=== PATIENT | male | born 1990 | race Caucasian/White ===

== ENCOUNTER 2020-04-01 22:16 | Inpatient (IN) | payer OTHER, SELFPAY ==
[2020-04-01] MEDS ORDERED: Ondansetron PF 4 MG/2 ML Vial ONE (22:35)
[2020-04-01] MEDS ORDERED: Morphine 4 MG/ML VIAL ONE (22:35)
[2020-04-02] MEDS ORDERED: Morphine 4 MG/ML VIAL SLOW IVP PRN (01:08)
[2020-04-02] MEDS ORDERED: Ondansetron PF 4 MG/2 ML Vial IVP PRN (01:15)
[2020-04-02] MEDS ORDERED: Ondansetron ODT 4 MG TAB SL PRN (01:15)
[2020-04-02] MEDS ORDERED: Sodium Chloride 0.9% 1,000 ML IV SCH (01:15)
[2020-04-02 01:43] VITALS: BMI 21.2
[2020-04-02] MEDS: Piperacillin/Tazobactam 3.375 GM in Sodium Chloride 0.9% 100 ML IVPB SCH ×4 (03:43→23:23)
--- NOTE | 2020-04-02 07:29 | HP ---
CHIEF COMPLAINT: Right lower quadrant abdominal pain. HISTORY OF PRESENT ILLNESS: This is a 29-year-old male with a 4-day history of abdominal pain, now right lower quadrant, associated with nausea, vomiting, anorexia, subjective fever. Last meal was yesterday at 11:00 a.m. PAST MEDICAL HISTORY: Otherwise healthy. PAST SURGICAL HISTORY: Tonsils and adenoidectomy. No medications. ALLERGIES: NO KNOWN DRUG ALLERGIES. SOCIAL HISTORY: . No tobacco and no alcohol. FAMILY HISTORY: Prostate cancer and diabetes. PHYSICAL EXAMINATION: VITAL SIGNS: Temperature 97.8, pulse 76, blood pressure 92/57. GENERAL: He is awake, alert, and lying still. HEENT: Unremarkable. LUNGS: Clear. HEART: Regular rate and rhythm. ABDOMEN: Nondistended. Percussion, tender in right lower quadrant. Positive Rovsing. No palpable mass. LABORATORY DATA: CT scan shows appendicitis. His white count is 10,000. H and H of 14 and 41, platelet count 259. Electrolytes are fine. ASSESSMENT: Acute appendicitis. PLAN: Laparoscopic appendectomy. CONSENT: I have discussed planned procedure as well as risk of bleeding, infection, injury to bowel and bladder, need to open. He understands, gives informed consent. Job ID: [id number]
[2020-04-02] MEDS: Sodium Chloride 0.9% 1,000 ML IV SCH ×3 (07:34→19:59)
[2020-04-02] MEDS ORDERED: cefOXitin Sodium/Dextrose 2 GM/50 ML BAG ONE (08:02)
[2020-04-02] MEDS ORDERED: Bupivacaine 0.25% HCL 30 ML VIAL ONE (08:07)
[2020-04-02] MEDS ORDERED: Lidocaine 1% w/Epinephrine 1:100K 20 ML VIAL ONE (08:07)
[2020-04-02] MEDS ORDERED: Fentanyl 100 MCG/2 ML VIAL ONE ×2 (08:15→09:56)
[2020-04-02] MEDS ORDERED: Lidocaine 2% Jelly 5 ML TUBE ONE (08:16)
[2020-04-02] MEDS ORDERED: Ondansetron PF 4 MG/2 ML Vial ONE (08:28)
[2020-04-02] MEDS ORDERED: Succinylcholine Chloride 20 MG/ML 10 ml SYRINGE FS ONE (08:28)
[2020-04-02] MEDS ORDERED: PROPOFOL 200 MG/20 ML VIAL ONE (08:28)
[2020-04-02] MEDS ORDERED: Ketorolac Tromethamine 30 MG/ML VIAL ONE (08:28)
[2020-04-02] MEDS ORDERED: Dexamethasone 20 MG/5 ML VIAL ONE (08:28)
[2020-04-02] MEDS ORDERED: Rocuronium Bromide 10 MG/ML (10ML VIAL) ONE (08:28)
[2020-04-02] MEDS ORDERED: Glycopyrrolate 0.2 MG/ML 5 ML SYRINGE ONE (08:28)
[2020-04-02] MEDS ORDERED: Lidocaine 1% PF 5 ML VIAL ONE (08:28)
[2020-04-02] MEDS ORDERED: SUGAMMADEX SODIUM 200 MG/2 ML VIAL ONE (09:37)
[2020-04-02] MEDS ORDERED: traMADol HCl 50 MG TAB PO PRN (09:44)
[2020-04-02] MEDS ORDERED: Promethazine HCl 25 MG/ML VIAL IM PRN (09:51)
[2020-04-02] MEDS ORDERED: Ondansetron HCl/PF 4 MG/2 ML Vial IVP PRN (09:51)
[2020-04-02] MEDS ORDERED: Promethazine HCl 25 MG/ML VIAL SLOW IVP PRN (09:51)
[2020-04-02] MEDS ORDERED: Meperidine HCl/PF 25 MG/ML VIAL ONE (09:56)
[2020-04-02] MEDS: Ketorolac Tromethamine 30 MG/ML VIAL IVP SCH ×3 (11:16→23:23)
[2020-04-02] MEDS: Acetaminophen 500 MG TAB PO SCH ×3 (11:17→23:23)
--- NOTE | 2020-04-02 11:43 | OP ---
DATE OF PROCEDURE: 04/02/2020 PREOPERATIVE DIAGNOSIS: Acute appendicitis. POSTOPERATIVE DIAGNOSIS: Acute suppurative retrocecal appendicitis with perforation. PROCEDURE PERFORMED: Laparoscopic appendectomy. ANESTHESIA: General endotracheal. ESTIMATED BLOOD LOSS: 10 mL. FLUIDS GIVEN: 600 mL of crystalloids. COUNTS: Sponge and instrument counts were verified as correct x2. COMPLICATIONS: None apparent at the time of operation. INDICATIONS FOR OPERATION: This is a 29-year-old man presented with a 4-day history of right lower quadrant abdominal pain. Clinical and radiographic examination were consistent with acute appendicitis, for which the patient was brought to the operating room today for appendectomy. Findings are consistent with suppurative retrocecal appendix with perforation. Minimum purulent abscess evacuated there. DESCRIPTION OF PROCEDURE: Informed consent was obtained from the patient who was brought to the operating room and placed in supine position. Following general anesthesia, abdomen was sterilely prepped and draped in usual fashion. Skin below the umbilicus was infiltrated with 0.25% Marcaine with epinephrine. A small curvilinear infraumbilical incision was made using 11 scalpel. Umbilical stalk was grasped with Alberto and elevated. Veress needle was inserted through the incision and placed in the peritoneal cavity, through which the abdomen was insufflated with 3 L of CO2 gas. Intra-abdominal pressure was noted at 1 mmHg. Following abdominal insufflation, the Veress needle was removed and a 5 mm trocar introduced using a Visiport under laparoscopy. Laparoscopy confirmed proper placement of the port. No injuries to underlying structures. Additional laparoscopy revealed right lower quadrant partially obscured by omental adhesions. Under direct laparoscopy, a 5 mm left lower quadrant and suprapubic ports were placed after the overlying skin infiltrated with 0.25% Marcaine with epinephrine. Appropriate incision was made. The patient was then placed in the Trendelenburg position, rotated to his left. I introduced a Prestige grasper through the left lower quadrant port site, using this to bluntly take down omental adhesions. The distal ileum was completely welded to the right lateral gutter obscuring the cecum and appendix. This was bluntly taken down using Endo suction catheter to reveal suppurative retrocecal appendix, which was quite necrotic. This was dissected off the surrounding structures. Remnant mesoappendix was sterilely divided down to the base using the LigaSure device with good hemostasis. The appendix itself was divided at the viable appendicocecal junction between Endoloop. The specimen was delivered off the abdominal cavity using an EndoCatch. Operative site was irrigated with saline. Good hemostasis was noted in place. Small bowel was run from the terminal ileum to proximal 2 feet. No Meckel diverticulum noted. Finding no other pathology, laparoscopy was terminated. The abdomen was desufflated. All ports and instruments were removed and accounted for. Skin incisions were closed using 4-0 Monocryl suture in subcuticular fashion. Dermabond was applied over incisional closure. The patient tolerated the operation without any apparent complication and was returned to recovery room in satisfactory condition. Job ID: [id number]
[2020-04-02] MEDS: traMADol HCl 50 MG TAB PO PRN ×2 (13:50→19:53)
[2020-04-02] MEDS: Famotidine 20 MG TAB PO SCH (21:17)
[2020-04-02] MEDS ORDERED: Morphine 4 MG/ML VIAL SLOW IVP SCH (21:30)
--- NOTE | 2020-04-03 01:18 | PRG ---
DATE OF SERVICE: 04/02/2020 SUBJECTIVE: Patient was seen this evening during rounds. He was lying in bed, resting comfortably with no signs of acute distress. Earlier in the evening, nursing reported the patient was having 8/10 abdominal pain. The patient reports after eating a country-fried steak, he started to feel much more bloated with abdominal pain. He has been ambulating. No flatus or bowel movement yet. OBJECTIVE: VITAL SIGNS: Temperature 98.1, pulse 78, respirations 18, oxygen saturation 98% on room air, and blood pressure 116/77. GENERAL: Well-appearing young male, lying in bed, with no signs of acute distress. PULMONARY: Equal chest rise and fall. No signs of acute respiratory distress. CARDIAC: Regular rate and rhythm. GI: Abdomen is soft, appropriately tender to palpation and nondistended. NEUROLOGIC: GCS 15. ASSESSMENT: Postop day 0, status post lap appy for acute suppurative retrocecal appendicitis with perforation. PLAN: Continue current regular diet. Continue normal saline at 150 an hour. Continue Zosyn. Continue ambulating as much as possible. Follow up with patient this evening for further flatus and improved pain. He will likely go home in the morning. Job ID: [id number] MTDD
[2020-04-03] MEDS: Sodium Chloride 0.9% 1,000 ML IV SCH (04:20)
[2020-04-03] MEDS: traMADol HCl 50 MG TAB PO PRN ×3 (04:22→16:58)
[2020-04-03 05:39] LABS: #Eosinphils 0.1 thou/uL (0.0-0.7); #Lymphocytes 1.4 thou/uL (1.20-3.40); #Monocytes 0.3 thou/uL (0.11-0.59); #Neutrophils 10.4 thou/uL (1.40-6.50); %Basophils 0.2 % (0.0-1.0); %Eosinophils 0.5 % (0.0-10.0); %Lymphocytes 11.2 % (21.0-51.0); %Monocytes 2.4 % (0.0-10.0); %Neutrophils 85.6 % (42.0-75.0); Hemoglobin 11.1 g/dL (14.0-18.0); Mean Corpuscular HGB CONC 31.9 g/dL (32.0-36.0); Mean Corpuscular Hemoglobin 28.8 pg (27.0-31.0); Mean Corpuscular Volume 90.2 fL (78.0-98.0); Mean Platelet Volume 8.2 fL (7.4-10.4); Platelet Count 244 thou/uL (130-400); RBC Distribution Width 11.6 % (11.5-14.5); Red Blood Cell (RBC) Count 3.84 mill/uL (4.70-6.10); White Blood Cell (WBC) Count 12.1 thou/uL (4.8-10.8)
[2020-04-03 06:04] LABS: Anion Gap 11 mmol/L (10-20); BUN (Urea Nitrogen) 10 mg/dL (8.9-20.6); Calc. Creatinine Clearance 110 mL/min (70-130); Calcium 8.1 mg/dL (7.8-10.44); Carbon Dioxide 24 mmol/L (22-29); Chloride 105 mmol/L (98-107); Estimated GFR-MDRD Greater than 90; Glucose 130 mg/dL (70-105); Magnesium 2.2 mg/dL (1.6-2.6); Phosphorus 2.3 mg/dL (2.3-4.7); Sodium 136 mmol/L (136-145)
[2020-04-03] MEDS: Ketorolac Tromethamine 30 MG/ML VIAL IVP SCH (06:08)
[2020-04-03] MEDS: Acetaminophen 500 MG TAB PO SCH ×3 (06:08→18:22)
[2020-04-03] MEDS: Piperacillin/Tazobactam 3.375 GM in Sodium Chloride 0.9% 100 ML IVPB SCH (06:09)
[2020-04-03] MEDS: Famotidine 20 MG TAB PO SCH ×2 (09:55→21:21)
[2020-04-03] MEDS: Amoxicillin/Potassium Clav 875 MG TAB PO SCH ×2 (10:45→21:21)
[2020-04-03] MEDS: Ibuprofen 600 MG TAB PO PRN ×2 (10:45→18:22)
--- NOTE | 2020-04-03 16:38 | PRG ---
DATE OF SERVICE: 04/03/2020 SUBJECTIVE: The patient was seen during morning rounds with Dr. Menendez. The patient is awake, alert, ambulating in his room, in moderate distress due to pain. The patient denies having a bowel movement or passing gas at this time. The patient does report abdominal pain, 8/10 currently. OBJECTIVE: VITAL SIGNS: Temperature 98.5, pulse 100, respirations 16, SpO2 of 95% on room air, blood pressure 105/64. GENERAL: Well-appearing male, moderate distress due to pain. PULMONARY: Equal chest rise and fall, bilateral breath sounds clear, no respiratory distress. CARDIAC: Regular rate and regular rhythm. ABDOMEN: Soft, diffuse tenderness, no peritoneal signs, nondistended. NEUROLOGIC: No focal deficits. LABORATORY DATA: WBC 12.1, RBC 3.84, hemoglobin 11.1, hematocrit 34.7, platelets 244. Sodium 136, potassium 4.0, chloride 105, carbon dioxide 24, BUN 10, creatinine 0.95, estimated GFR greater than 90, glucose 130, calcium 8.1, phosphorus 2.3, magnesium 2.2. DIAGNOSTICS: There are no new diagnostics to review today. ASSESSMENT: Status post laparoscopic appendectomy for appendicitis with perforation. PLAN: Continue pain regimen and supportive care. The patient has been encouraged to ambulate frequently. We will change the patient to a clear like liquid diet until he has return of bowel function. We will switch antibiotics to p.o. Augmentin. We will discharge maintenance IV fluids as the patient is tolerating clear liquids. The patient will likely be discharged home tomorrow if he is tolerating fluids and passing gas. The plan was discussed with the patient who agrees. The patient was examined by Dr. Menendez during morning rounds. Job ID: [id number]
[2020-04-03] MEDS ORDERED: Bisacodyl 10 MG SUPP PR PRN (21:32)
[2020-04-03] MEDS ORDERED: diphenhydrAMINE 25 MG CAP PO PRN (21:33)
[2020-04-03] MEDS ORDERED: Morphine 2 MG/ML SYRINGE SLOW IVP PRN (21:35)
[2020-04-04] MEDS: Acetaminophen 500 MG TAB PO SCH ×4 (00:23→17:51)
[2020-04-04] MEDS: traMADol HCl 50 MG TAB PO PRN ×2 (00:24→09:08)
--- NOTE | 2020-04-04 00:35 | PRG ---
DATE OF SERVICE: 04/03/2020 SUBJECTIVE: The patient was seen this evening during round. He was sitting up in bed with no signs of acute distress. Nursing had just given the patient a Dulcolax suppository, reported he had passed a minimal amount of gas earlier this evening. OBJECTIVE: VITAL SIGNS: Temperature 98.8, pulse 98, respirations 18, oxygen saturation 95% on room air, blood pressure 118/75. GENERAL: A well-appearing young male, sitting up in bed with no signs of acute distress. PULMONARY: Equal chest rise and fall. Clear breath sounds bilaterally. No signs of acute respiratory distress. ABDOMEN: Soft, appropriately tender to palpation and nondistended. ASSESSMENT: Postoperative day #1, status post laparoscopic appendectomy for acute suppurative appendicitis with perforation. PLAN: Continue clear liquid diet. Continue p.o. Augmentin for pain control. The patient is to receive suppository this evening. Follow up on return of bowel function. Consider advancing diet tomorrow if the patient has signs of bowel function return. Job ID: [id number]
[2020-04-04] MEDS ORDERED: Morphine 4 MG/ML VIAL SLOW IVP PRN ×2 (01:15→21:30)
[2020-04-04 05:17] LABS: #Basophils 0.1 thou/uL (0.0-0.2); #Eosinphils 0.8 thou/uL (0.0-0.7); #Monocytes 0.6 thou/uL (0.11-0.59); #Neutrophils 12.2 thou/uL (1.40-6.50); %Basophils 0.4 % (0.0-1.0); %Lymphocytes 12.6 % (21.0-51.0); %Monocytes 3.9 % (0.0-10.0); %Neutrophils 78.1 % (42.0-75.0); Hemoglobin 11.1 g/dL (14.0-18.0); Mean Corpuscular HGB CONC 31.8 g/dL (32.0-36.0); Mean Corpuscular Hemoglobin 29.1 pg (27.0-31.0); Mean Corpuscular Volume 91.3 fL (78.0-98.0); Mean Platelet Volume 7.8 fL (7.4-10.4); Platelet Count 256 thou/uL (130-400); Red Blood Cell (RBC) Count 3.82 mill/uL (4.70-6.10); White Blood Cell (WBC) Count 15.6 thou/uL (4.8-10.8)
[2020-04-04 05:39] LABS: Anion Gap 14 mmol/L (10-20); BUN (Urea Nitrogen) 7 mg/dL (8.9-20.6); Calc. Creatinine Clearance 115 mL/min (70-130); Calcium 8.2 mg/dL (7.8-10.44); Carbon Dioxide 25 mmol/L (22-29); Chloride 105 mmol/L (98-107); Estimated GFR-MDRD Greater than 90; Glucose 86 mg/dL (70-105); Magnesium 1.9 mg/dL (1.6-2.6); Phosphorus 2.6 mg/dL (2.3-4.7); Potassium 3.7 mmol/L (3.5-5.1); Sodium 140 mmol/L (136-145)
[2020-04-04] MEDS: Ibuprofen 600 MG TAB PO PRN (05:48)
[2020-04-04] MEDS: Famotidine 20 MG TAB PO SCH ×2 (09:08→20:15)
[2020-04-04] MEDS: Amoxicillin/Potassium Clav 875 MG TAB PO SCH (09:09)
--- NOTE | 2020-04-04 12:16 | RAD ---
Exam: Single view of the chest and 2 views of the abdomen HISTORY: Postoperative pain and bloating COMPARISON: None FINDINGS: 2 views of the abdomen and a single view the chest shows a nonspecific, nonobstructive gisela l gas pattern. Air is seen to the level of the rectum. Free air is seen beneath the diaphragm which may be from recent surgery. No significant air-fluid levels are seen within bowel loops. The cardiomediastinal silhouette is normal in size. There is no evidence of consolidation, mass, or p leural effusion. Bibasilar atelectasis is seen. IMPRESSION: Free air beneath the diaphragm is likely from recent surgery.
[2020-04-04] MEDS ORDERED: traMADol HCl 50 MG TAB PO PRN (16:38)
[2020-04-04] MEDS: traMADol HCl 50 MG TAB PO SCH ×2 (17:50→22:49)
[2020-04-04] MEDS: Piperacillin/Tazobactam 3.375 GM in Sodium Chloride 0.9% 100 ML IVPB SCH (17:51)
[2020-04-04] MEDS: Ketorolac Tromethamine 30 MG/ML VIAL IVP SCH (17:51)
--- NOTE | 2020-04-04 18:44 | PRG ---
DATE OF SERVICE: 04/04/2020 SUBJECTIVE: The patient was seen during morning rounds with Dr. Menendez. The patient was awake and alert, in no distress. The patient continues to have some abdominal pain and bloating. The patient has not had any fevers. The patient's white count was elevated today. The patient continues to tolerate a clear liquid. The patient has had a tiny amount of flatus. No bowel movement yet. The patient has been ambulating frequently. OBJECTIVE: VITAL SIGNS: Temperature 98.6, pulse 100, respirations 18, SpO2 of 92% on room air, and blood pressure 125/74. GENERAL: Well-appearing young male, awake, alert, no distress. PULMONARY: Equal chest rise and fall. Bilateral breath sounds clear. No respiratory distress. CARDIAC: Regular rate, regular rhythm. ABDOMEN: Mildly distended, soft, diffuse tenderness. No peritoneal signs. NEUROLOGIC: No focal deficits. LABORATORY DATA: WBC 15.6, RBC 3.82, hemoglobin 11.1, and hematocrit 34.9. Sodium 140, potassium 3.7, chloride 105, BUN 7, creatinine 0.91, estimated GFR greater than 90, glucose 86, calcium 8.2, phosphorus 2.6, and magnesium 1.9. DIAGNOSTICS: Acute abdomen series; impression, free air beneath the diaphragm is likely from recent surgery. X-ray reviewed by Dr. Menendez. PLAN: Continue clear liquid diet as tolerated. Continue to have the patient ambulate frequently. We will change the patient back to IV antibiotics. We will repeat labs in the morning. Again, the patient was examined by Dr. Menendez. The plan was discussed with the patient who agrees. Job ID: [id number]
--- NOTE | 2020-04-05 00:12 | PRG ---
DATE OF SERVICE: 04/04/2020 SUBJECTIVE: The patient was seen this evening during rounds. He was lying on his left side, resting comfortably and asleep with no signs of acute distress. Nursing reported no acute events. OBJECTIVE: VITAL SIGNS: Temperature 99.0, pulse 89, respirations 17, oxygen saturation 95% on room air, blood pressure 119/75. GENERAL: Well-appearing young male, lying in bed, resting comfortably and asleep with no signs of acute distress. PULMONARY: Equal chest rise and fall. No signs of acute respiratory distress. ASSESSMENT: Postop day two status post laparoscopic appendectomy for acute suppurative appendicitis with perforation. PLAN: Continue current clear liquid diet. Continue ambulation. Continue IV antibiotics. Repeat blood work in the morning. Job ID: [id number]
[2020-04-05] MEDS: Ketorolac Tromethamine 30 MG/ML VIAL IVP SCH ×5 (00:30→23:31)
[2020-04-05] MEDS: Acetaminophen 500 MG TAB PO SCH ×5 (00:30→23:40)
[2020-04-05] MEDS: Piperacillin/Tazobactam 3.375 GM in Sodium Chloride 0.9% 100 ML IVPB SCH ×3 (00:30→11:43)
[2020-04-05 06:01] LABS: Band 25 % (5-11); Eosinophils 9 % (0-10); Hemoglobin 11.1 g/dL (14.0-18.0); Lymphocytes 8 % (21-51); MDiff Complete? YES; Mean Corpuscular HGB CONC 31.8 g/dL (32.0-36.0); Mean Corpuscular Hemoglobin 28.8 pg (27.0-31.0); Mean Corpuscular Volume 90.7 fL (78.0-98.0); Mean Platelet Volume 7.8 fL (7.4-10.4); Monocytes 5 % (0-10); Neutrophil 53 % (42-75); Platelet Count 298 thou/uL (130-400); Platelet Morphology Comment Appears Adequate; Red Blood Cell (RBC) Count 3.86 mill/uL (4.70-6.10); White Blood Cell (WBC) Count 14.8 thou/uL (4.8-10.8)
[2020-04-05] MEDS: traMADol HCl 50 MG TAB PO SCH ×4 (06:04→23:39)
[2020-04-05 06:28] LABS: Anion Gap 14 mmol/L (10-20); BUN (Urea Nitrogen) 9 mg/dL (8.9-20.6); Calc. Creatinine Clearance 104 mL/min (70-130); Calcium 8.4 mg/dL (7.8-10.44); Carbon Dioxide 26 mmol/L (22-29); Chloride 103 mmol/L (98-107); Estimated GFR-MDRD 89; Glucose 79 mg/dL (70-105); Phosphorus 3.6 mg/dL (2.3-4.7); Potassium 3.4 mmol/L (3.5-5.1); Sodium 140 mmol/L (136-145)
[2020-04-05] MEDS: Famotidine 20 MG TAB PO SCH ×2 (09:25→20:55)
--- NOTE | 2020-04-05 15:08 | PRG ---
DATE OF SERVICE: 04/05/2020 SUBJECTIVE: Mr. Araya is a 29-year-old man, postoperative day #3 status post laparoscopic appendectomy for acute appendicitis. Pathology report is consistent with acute suppurative appendicitis. Yesterday, the patient was noted with significant abdominal pain and bloating. He was maintained on clear liquid diet and encouraged to ambulate. He was also continued on antibiotics due to local perforation and peritonitis. This morning, he reports 4/10 abdominal pain and is tolerating clear liquid diet. He reports passing flatus and has had 1 bowel movement. Urinary output remains adequate for this patient's age and weight. OBJECTIVE: VITAL SIGNS: Today include blood pressure 120/73, pulse 81, respiratory rate 16, temperature 98.4 degrees Fahrenheit, oxygen saturation 97% on room air. HEENT: Pupils are equal, round, and reactive to light and accommodation. HEART: Reveals regular rate and rhythm. LUNGS: Clear to auscultation bilaterally. ABDOMEN: Soft and nondistended. Incisions remain intact, clean, and dry. He has incisional tenderness to palpation with no gross rebound tenderness present. Bowel sounds are adequate in all 4 quadrants. NEUROLOGIC: Reveals no focal deficits present. LABORATORY FINDINGS: Today include a CBC with 14,800 white blood cells, hemoglobin and hematocrit 11.1 and 35.0 respectively, platelet count is 298,000. Differential counts as follows; 53 segmented neutrophils, 25 bands, 8 lymphocytes, 5 monocytes, and 9 eosinophils. Metabolic profile; sodium 140, potassium 3.4, chloride is 103, bicarb is 26, BUN 9, creatinine is 1.0, magnesium 2.0, and phosphorus is 3.6. IMPRESSION: 1. Postoperative day #3 status post laparoscopic appendectomy. 2. Acute suppurative appendicitis with perforation and local peritonitis, resolving. PLAN: 1. The patient will be started on oral antibiotics. 2. We will advance his diet to regular. 3. Anticipate discharge tomorrow if the leukocytosis is resolving and the patient remains afebrile with no exacerbation of abdominal pain. Job ID: [id number]
[2020-04-05] MEDS: Amoxicillin/Potassium Clav 875 MG TAB PO SCH (20:55)
[2020-04-06] MEDS: Acetaminophen 500 MG TAB PO SCH ×2 (05:08→11:07)
[2020-04-06] MEDS: traMADol HCl 50 MG TAB PO SCH ×2 (05:08→11:07)
[2020-04-06 05:18] LABS: Band 13 % (5-11); Eosinophils 4 % (0-10); Lymphocytes 21 % (21-51); MDiff Complete? YES; Mean Corpuscular HGB CONC 32.9 g/dL (32.0-36.0); Mean Corpuscular Hemoglobin 29.7 pg (27.0-31.0); Mean Corpuscular Volume 90.2 fL (78.0-98.0); Mean Platelet Volume 7.4 fL (7.4-10.4); Metamyelocyte 3 % (0-0); Neutrophil 59 % (42-75); Platelet Count 360 thou/uL (130-400); Platelet Morphology Comment Appears Adequate; RBC Distribution Width 12.3 % (11.5-14.5); Red Blood Cell (RBC) Count 4.39 mill/uL (4.70-6.10); White Blood Cell (WBC) Count 13.7 thou/uL (4.8-10.8)
[2020-04-06 05:44] LABS: Anion Gap 13 mmol/L (10-20); BUN (Urea Nitrogen) 9 mg/dL (8.9-20.6); Calc. Creatinine Clearance 115 mL/min (70-130); Calcium 8.6 mg/dL (7.8-10.44); Carbon Dioxide 28 mmol/L (22-29); Chloride 102 mmol/L (98-107); Estimated GFR-MDRD Greater than 90; Glucose 95 mg/dL (70-105); Magnesium 2.2 mg/dL (1.6-2.6); Phosphorus 4.4 mg/dL (2.3-4.7); Potassium 3.7 mmol/L (3.5-5.1); Sodium 139 mmol/L (136-145)
--- NOTE | 2020-04-06 06:37 | PRG ---
DATE OF SERVICE: 04/05/2020 SUBJECTIVE: The patient was seen this evening during rounds. He was sitting up in bed with no signs of acute distress. He reported pain is well controlled, much better than previously. He has had multiple loose bowel movements and reports that he is feeling much better afterwards. Tolerating a regular diet, ambulating without difficulties. Changed from Zosyn to Augmentin today. OBJECTIVE: VITAL SIGNS: Temperature 98.0, pulse 80, respirations 18, oxygen saturation 98% on room air, and blood pressure 128/82. GENERAL: Well-appearing young male, sitting up in bed with no signs of acute distress. PULMONARY: Equal chest rise and fall. No signs of acute respiratory distress. ASSESSMENT: Postop day #3 status post laparoscopic appendectomy for acute suppurative appendicitis with perforation. PLAN: Continue Augmentin. Continue regular diet. Continue ambulating. Repeat blood work in the morning. If white count decreasing, he will be discharged tomorrow. Job ID: [id number]
[2020-04-06] MEDS: Ketorolac Tromethamine 30 MG/ML VIAL IVP SCH ×2 (07:30→11:08)
[2020-04-06] MEDS: Amoxicillin/Potassium Clav 875 MG TAB PO SCH (07:52)
[2020-04-06] MEDS: Famotidine 20 MG TAB PO SCH (07:52)
[2020-04-06 11:40] VITALS: BP 122/77; TEMP 97.8
== END 2020-04-06 14:16 | disposition home or self-care (01) | DRG 340 ==
LOC: ERS 22:16 → SURG A 23:37 → OBSVTOIN 04-03 12:41
PROVIDERS: ADMIT Surgery; ATTEND Surgery
PROC: 0DTJ4ZZ Resection of Appendix, Percutaneous Endoscopic Approach (ICD-10-PCS; principal; 2020-04-02)
DX: K35.32 Acute appendicitis with perforation, localized peritonitis, and gangrene, without abscess (principal); Z90.89 Acquired absence of other organs
CPT/HCPCS: 36415; 74022; 80048; 83735; 84100; 85007; 85025; 85027; 88304; 96361; 96374; 96375; J0694; J1100; J1885; J2175; J2270; J2405; J2543; J2704; J3010; J3490; J7030; S0020